=== PATIENT | female | born 1980 | race Asian ===

== ENCOUNTER 2024-07-06 16:56 | Emergency (ER) | payer BC ==
[~2024-07-06] VITALS: Ht 157.5 cm; Wt 67.6 kg
[2024-07-06] MEDS ORDERED: PSEUDOEPHEDRINE HCL 30 MG TAB PO ONE (17:45)
[2024-07-06] MEDS ORDERED: ACETAMINOPHEN 500 MG TAB PO ONE (17:45)
[2024-07-06] MEDS ORDERED: DEXAMETHASONE SOD PHOS 10 MG/ML VIAL PO ONE (17:45)
[2024-07-06 17:56] LABS: BASOPHILS 0.4 % (0-2); EOSINOPHILS 1.3 % (0-6); HEMATOCRIT 39.4 % (35.0-50.0); HEMOGLOBIN 13.5 g/dL (12.0-18.0); LYMPHOCYTES 9.8 % (24-44); MCH 28.8 (27-36); MCHC 34.2 g/dl (30-36); MCV 84.1 fl (81-99); MONOCYTES 5.2 % (0-12); NEUTROPHILS 83.3 % (39-80); PLATELET COUNT 340 K/uL (140-440); RBC 4.69 M/ul (4.3-5.7); RDW 13.3 (10.5-15.0)
[2024-07-06 18:19] LABS: ALBUMIN 3.8 g/dL (3.4-5.0); ALBUMIN/GLOBULIN RATIO 1.06 (1.1-2.4); BILIRUBIN, TOTAL 0.3 mg/dL (0.2-1.0); BUN/CREATININE RATIO 36.84 (6.0-28.6); CALCIUM 9.4 mg/dL (8.5-10.1); CREATININE, SERUM 0.57 mg/dL (0.55-1.02); MAGNESIUM 2.1 mg/dL (1.8-2.4); PROTEIN, TOTAL 7.4 g/dL (6.4-8.2); TSH, 3RD GENERATION 1.275 uIU/mL (0.358-3.740)
[2024-07-06] MEDS ORDERED: SODIUM CHLORIDE 0.9% 1,000 ML IV PRN (19:00)
[2024-07-06] MEDS ORDERED: MECLIZINE HCL 25 MG TAB PO ONE (19:15)
[2024-07-06] MEDS ORDERED: CALCIUM CARBONATE 500 MG CHEW PO ONE (20:00)
[2024-07-06 20:17] LABS: BILIRUBIN, URINE NEGATIVE (negative); BLOOD/HGB, URINE SMALL (Negative); KETONE, URINE NEGATIVE (Negative); LEUK ESTERASE, URINE NEGATIVE (negative); NITRITE, URINE NEGATIVE (negative); PH, URINE 6.5 (5-7)
[2024-07-06 20:25] LABS: BACTERIA, URINE RARE /hpf (negative); CRYSTALS, URINE NONE SEEN (0-1+); EPITHELIAL CELLS, URINE SQUAMOUS 1+ /lpf (0-1+)
[2024-07-06 20:26] LABS: CASTS, URINE NONE SEEN \\lpf; COLLECTION TYPE, URINE CLEAN CATCH; REFLEX CULTURE, URINE No (No)
[2024-07-06 20:45] VITALS: BP 125/84
== END 2024-07-06 20:45 | disposition home or self-care (01) ==
LOC: ED 16:56
PROVIDERS: Emergency Medicine
DX: H83.01 Labyrinthitis, right ear (principal); Z88.5 Allergy status to narcotic agent; Z79.899 Other long term (current) drug therapy
CPT/HCPCS: 36415; 71045; 80053; 81001; 83735; 84443; 84484; 84703; 85025; 93005; 93010; 96360; 99284-25; A9270; J1100; J7030